=== PATIENT | male | born 1950 | race Hispanic/Latino ===

== ENCOUNTER 2017-03-18 13:38 | Emergency (ER) | payer MEDICARE ==
[2017-03-18 14:43] VITALS: BP 120/78
--- NOTE | 2017-03-18 15:01 | XRay Report ---
CHEST 2 VIEWS INDICATION: Cough. COMPARISON: 05/28/2015 CT findings. FINDINGS: Frontal and lateral chest radiographs demonstrate slight limited inspiration with exaggerated cardiomediastinal silhouette and crowded markings toward the bases. Lungs otherwise grossly clear without pleural effusions or CHF. Mild thoracic spine degenerative spurring. CONCLUSION: No significant acute chest process, as described. Thank you for the opportunity to participate in this patient's care.
--- NOTE | 2017-03-18 17:52 | Emergency Department Report ---
HPI - General Chief Complaint: Medical Clearance Time Seen by Provider: 03/18/17 16:43 ED Past Medical Hx - Past Medical History Hx COPD: Yes - Surgical History Additional Surgical History: hip replacement. - Social History Smoking Status: Never Smoker ED Review of Systems ROS: Stated complaint: SENT BY Other details as noted in HPI Physical Exam - Physical Exam Vital Signs: Vital Signs 03/18/17 14:37 Temperature 97.9 F Pulse Rate 80 Respiratory 18 Rate Blood Pressure 120/78 O2 Sat by Pulse 94 Oximetry ED Course Vital Signs 03/18/17 14:37 Temperature 97.9 F Pulse Rate 80 Respiratory 18 Rate Blood Pressure 120/78 O2 Sat by Pulse 94 Oximetry ED Medical Decision Making - Radiology Data Radiology results: report reviewed, image reviewed CHEST 2 VIEWS INDICATION: Cough. COMPARISON: 05/28/2015 CT findings. FINDINGS: Frontal and lateral chest radiographs demonstrate slight limited inspiration with exaggerated cardiomediastinal silhouette and crowded markings toward the bases. Lungs otherwise grossly clear without pleural effusions or CHF. Mild thoracic spine degenerative spurring. CONCLUSION: No significant acute chest process, as described. Thank you for the opportunity to participate in this patient's care. Transcribed By: RS Dictated By: NICA ESPAÑA MD Electronically Authenticated By: NICA ESPAÑA MD Signed Date/Time: 03/18/17 1918 Critical care attestation.: If time is entered above; I have spent that time in minutes in the direct care of this critically ill patient, excluding procedure time. ED Disposition Condition: Stable Referrals: PRIMARY CAREMD [Primary Care Provider] - 3-5 Days
--- NOTE | 2017-03-18 18:14 | Emergency Department Report ---
Chief Complaint: Medical Clearance Stated Complaint: SENT BY DR Broussard Seen by Provider: 03/18/17 16:43 - HPI History of Present Illness: Patient is a 66-year-old male who presents to ED from his primary care doctor sustained wit her note for needing IV fluids. She'll bring a note from the primary care doctor stating that patient has had a viral syndrome and is dehydrated and needs some IV fluids. Patient states his had intermittent cough, body aches for the past day. He denies nausea, vomiting, chest pain, shortness of breath or any other problems. - ROS Review of Systems: As noted in HPI - Exam Vital Signs: Vital Signs 03/18/17 14:37 Temperature 97.9 F Pulse Rate 80 Respiratory 18 Rate Blood Pressure 120/78 O2 Sat by Pulse 94 Oximetry Physical Exam: GENERAL: Alert and oriented x3, no apparent distress, Normal Gait, atraumatic. HEAD: Head is normocephalic and a-traumatic. EYES: Pupils are equal, round, and reactive to light and accommodation. EARS: symetrical, atraumatic, non tender, ear canal clear and moderate cerumen, tympanic membrance non inflamed. gross auditory nml bilaterally. SKIN: Warm and dry, No lesions, No ulceration or induration present. MSE screening note: Focused history and physical exam performed. Due to findings the following was ordered: ED Medical Decision Making - Medical Decision Making 66-year-old male stable presents for IV fluids per primary care physician. CBC, BMP ordered. Pending labs from a is normal patient can have 1 L of fluids at FT providers discretion Vitals are stable patient has no fever or any other abnormalities. He sitting comfortably in ED room ED Disposition for MSE Condition: Stable Referrals: PRIMARY CARE, [Primary Care Provider] - 3-5 Days
[2017-03-18 18:50] LABS: Basophils # (Auto) 0.1 K/mm3 (0.0-0.1); Basophils % (Auto) 1.3 % (0.0-1.8); Eosinophils # (Auto) 0.4 K/mm3 (0.0-0.4); Eosinophils % (Auto) 3.7 % (0.0-4.3); Hematocrit 44.9 % (35.5-45.6); Hemoglobin 14.8 gm/dl (11.8-15.2); Lymphocytes # (Auto) 3.4 K/mm3 (1.2-5.4); Lymphocytes % (Auto) 29.9 % (13.4-35.0); Mean Corpuscular HGB Conc 33 % (32-34); Mean Corpuscular Hemoglobin 34 pg (28-32); Mean Corpuscular Volume 103 fl (84-94); Monocytes % (Auto) 8.7 % (0.0-7.3); Platelet Count 286 K/mm3 (140-440); Red Blood Count 4.36 M/mm3 (3.65-5.03); Red Cell Distribution Width 13.1 % (13.2-15.2)
[2017-03-18 19:27] LABS: BUN/Creatinine Ratio 13; Blood Urea Nitrogen 12 mg/dL (9-20); Calcium 9.1 mg/dL (8.4-10.2); Hemolysis Index 2
--- NOTE | 2017-03-18 19:52 | Emergency Department Report ---
HPI - General Chief Complaint: Upper Respiratory Infection Time Seen by Provider: 03/18/17 16:43 - HPI HPI: Patient is a 66-year-old male who presents to ED from his primary care doctor sustained wit her note for needing IV fluids. She'll bring a note from the primary care doctor stating that patient has had a viral syndrome and is dehydrated and needs some IV fluids. Patient reports minimal cough and intensity has a history of COPD. He is able to tolerate fluids by mouth and has been drinking water since then emergency room. Patient said he feels achy but denies any fever or chills. Patient states his had intermittent cough, body aches for the past day. He denies nausea, vomiting, chest pain, shortness of breath or any other problems. Studies been taking [id number] cold and cough medication without any help. Pain at present his generalized a can at 2/10 ED Past Medical Hx - Past Medical History Previous Medical History?: Yes Hx COPD: Yes - Surgical History Past Surgical History?: Yes Additional Surgical History: hip replacement. - Family History Family history: hypertension - Social History Smoking Status: Never Smoker Substance Use Type: None - Medications Home Medications: Home Medications Medication Instructions Recorded Confirmed Last Taken Type Oseltamivir [Tamiflu] 75 mg PO BID 5 Days #10 cap 03/18/17 Unknown Rx ED Review of Systems ROS: Stated complaint: SENT BY Other details as noted in HPI Comment: All other systems reviewed and negative Constitutional: no symptoms reported Eyes: denies: eye pain ENT: congestion. denies: ear pain, throat pain Respiratory: cough. denies: shortness of breath, SOB with exertion, SOB at rest , stridor, wheezing Cardiovascular: denies: chest pain, palpitations, dyspnea on exertion, edema, syncope, paroxysmal nocturnal dyspnea Gastrointestinal: denies: abdominal pain, nausea, vomiting, diarrhea, constipation, hematemesis, melena, hematochezia Genitourinary: denies: urgency, dysuria, frequency, hematuria Musculoskeletal: myalgia. denies: back pain, joint swelling, arthralgia Skin: denies: rash Neurological: denies: headache, vertigo Physical Exam - Physical Exam Vital Signs: Vital Signs 03/18/17 14:37 Temperature 97.9 F Pulse Rate 80 Respiratory 18 Rate Blood Pressure 120/78 O2 Sat by Pulse 94 Oximetry Vital Signs 03/18/17 03/18/17 14:37 20:24 Temperature 97.9 F Pulse Rate 80 Respiratory 18 Rate Blood Pressure 120/78 O2 Sat by Pulse 94 96 Oximetry General: Patient is a 66-year-old male well-nourished well-developed in no acute distress. Physical Exam: Head: Normocephalic atraumatic Ears:BIateral TM congested without erythema and loss of bony landmarks. Alfred EAC with normal exam. No mastoid bone tenderness. Mouth: Moist, no pharyngeal erythema or exudate . No tonsillar erythema or exudate. UVULA midline and oral airways patent. No peritonsillar abscess Neck: Nontender to palpate, supple, normal range of motion. No adenopathy. No c- spine tenderness. Nose: Bilateral nasal mucosa congested with clear drainage. Maxillary and frontal sinuses tender to palpate. Eyes: Sclerae and conjunctiva without injection. Bilateral pupils equal and reactive to light. Bilateral lids are normal. Normal accommodation.BEOMI Lungs: Clear to auscultate bilaterally, no rhonchi wheezes or rales. Normal work of breathing and no chest wall tenderness CV: S1, S2. Regular rate and rhythm negative murmur. Capillary refill is less than 3 seconds Skin: Clean dry and intact, no rashes or lesions Psych: Normal mood and behavior ED Course Vital Signs 03/18/17 14:37 Temperature 97.9 F Pulse Rate 80 Respiratory 18 Rate Blood Pressure 120/78 O2 Sat by Pulse 94 Oximetry Vital Signs 03/18/17 03/18/17 14:37 20:24 Temperature 97.9 F Pulse Rate 80 Respiratory 18 Rate Blood Pressure 120/78 O2 Sat by Pulse 94 96 Oximetry - Reevaluation(s) Reevaluation #1: 03/18/17 20:28 Patient's stable and was orally hydrated emergency room without any difficulties. ED Medical Decision Making - Lab Data Result diagrams: 03/18/17 17:30 03/18/17 16:54 Lab Results 03/18/17 03/18/17 Range/Units 16:54 17:30 WBC 11.3 H (4.5-11.0) K/mm3 RBC 4.36 (3.65-5.03) M/mm3 Hgb 14.8 (11.8-15.2) gm/dl Hct 44.9 (35.5-45.6) % MCV 103 H (84-94) fl MCH 34 H (28-32) pg MCHC 33 (32-34) % RDW 13.1 L (13.2-15.2) % Plt Count 286 (140-440) K/mm3 Lymph % (Auto) 29.9 (13.4-35.0) % [place] % (Auto) 8.7 H (0.0-7.3) % Eos % (Auto) 3.7 (0.0-4.3) % Baso % (Auto) 1.3 (0.0-1.8) % Lymph # 3.4 (1.2-5.4) K/mm3 [place] # 1.0 H (0.0-0.8) K/mm3 Eos # 0.4 (0.0-0.4) K/mm3 Baso # 0.1 (0.0-0.1) K/mm3 Seg Neutrophils % 56.4 (40.0-70.0) % Seg Neutrophils # 6.4 (1.8-7.7) K/mm3 Sodium 141 (137-145) mmol/L Potassium 4.6 (3.6-5.0) mmol/L Chloride 100.1 (98-107) mmol/L Carbon Dioxide 26 (22-30) mmol/L Anion Gap 20 mmol/L BUN 12 (9-20) mg/dL Creatinine 0.9 (0.8-1.5) mg/dL Estimated GFR > 60 ml/min BUN/Creatinine Ratio 13 % Glucose 89 (75-100) mg/dL Calcium 9.1 (8.4-10.2) mg/dL Influenza A and B- - Radiology Data Radiology results: report reviewed Chest x-ray reveal no acute cardiopulmonary process - Medical Decision Making ED course: Presents emergency room reports that his doctor sent him to the ER for IV fluid because he thinks that he has the flu. Patient has negative influenza A or B. Chest x-ray normal without any acute findings. Labs are stable. Please refer to x-ray and lab section for details on results. Patient remains afebrile with normal vital signs. Pulse ox is at 94 and he said this usual for him because he has COPD. Prior to leaving patient pulse ox at 96% on room air. As a patient his results and give him option because he does have body aches congestion and cough and and he would like to be placed on Tamiflu. Patient orally hydrated emergency room so there is no need to start IV fluid and patient. He isn't discharged home to follow-up with his primary care physician on Tuesday. Critical care attestation.: If time is entered above; I have spent that time in minutes in the direct care of this critically ill patient, excluding procedure time. ED Disposition Clinical Impression: Upper respiratory infection, viral, Cough in adult patient Disposition: - TO HOME OR SELFCARE Is pt being admited?: No Does the pt Need Aspirin: No Condition: Stable Instructions: Upper Respiratory Infection (ED), Acute Cough (ED) Additional Instructions: Please increase her fluid intake to 2-3 L of water and/or Gatorade per day. Flush nostrils with saline nasal spray take medication as prescribed F/U with primary care physician as instructed Prescriptions: Oseltamivir [Tamiflu] 75 mg PO BID 5 Days #10 cap Referrals: PRIMARY CAREMD [Primary Care Provider] - 03/21/17 Forms: Work/School Release Form(ED)
== END 2017-03-18 20:40 | disposition home or self-care (01) ==
LOC: ED 13:38
DX: J06.9 Acute upper respiratory infection, unspecified (principal); J44.9 Chronic obstructive pulmonary disease, unspecified
CPT/HCPCS: 36415; 71046; 80048; 85025; 87400; 99283